=== PATIENT | male | born 1970 | race Caucasian/White ===

== ENCOUNTER 2020-06-13 16:44 | Emergency (ER) | payer MEDICAID, SELFPAY ==
[2020-06-13 16:46] VITALS: BP 124/69; PULSE 105; RESP 24; TEMP 36.2; O2SAT 99; BMI 17.6
--- NOTE | 2020-06-13 17:10 | EKG12_ITS ---
Test Reason : Blood Pressure : / mmHG Vent. Rate : 084 BPM Atrial Rate : 084 BPM P-R Int : 154 ms QRS Dur : 084 ms QT Int : 362 ms P-R-T Axes : 073 017 065 degrees QTc Int : 427 ms Normal sinus rhythm Normal ECG Confirmed by TRISTAN STARKEY, ITZ ([id number]), editor in chief newspaper PRINCE GALAN ([id number]) on 06/18/2020 9:29:50 AM Referred By: Confirmed By:DERICK HUDSON MD
[2020-06-13 17:20] LABS: Bedside Glucose > 500 mg/dL (70-110)
[2020-06-13 17:21] LABS: Absolute Neutrophil Count 2.8 X10^3/uL (2.0-7.7); Basophil# 0.02 X10^3/uL; Basophil% 0.4 % (0-1); Eosinophil# 0.04 X10^3/uL; Eosinophils% 0.9 % (0-5); Hematocrit 32.2 % (40-54); Lymphocyte % 30.6 % (19-41); Mean Corp Hgb Conc 31.1 g/dL (32-36); Mean Corpuscular Hgb 25.6 pg (27.0-32.0); Mean Corpuscular Volume 82.6 fL (80-94); Mean Platelet Vol. 9.8 fl (6.2-12.0); Monocyte% 6.6 % (0-10); NRBC Flagged by Analyzer 0 % (0-5); Neutrophil # 2.81 X10^3/uL (2.7-7.7); Neutrophil % 61.3 % (47-70); Platelet Count 234 K/mm3 (150-450); RBC Distribution Width CV 14.5 % (11.6-14.6); RBC Distribution Width SD 43.4 fl (35.1-43.9); White Blood Count 4.6 K/mm3 (4.4-11.0)
[2020-06-13 17:41] LABS: Blood Gas Specimen Type VEN; VBG BASE EXCESS -2 mmol/L (-1.0-3.5); VBG Bicarbonate 23 mmol/L (22-26); VBG Oxygen Content 24 mmol/L (23-33); VBG PO2 60 mmHg (25-40); VBG SO2 91 % (50-70); VBG pCO2 35.5 mmHg (41-51); VBG pH 7.42 (7.32-7.42)
[2020-06-13 17:45] LABS: Bacteria 0 SEEN /hpf (None Seen); Mucous, Urine 0 SEEN /hpf (<or=2+); Red Blood Cells-Urine 0 SEEN /hpf (0-5); Squamous Epithelial Cells - UA 0 SEEN /hpf (0-5); White Blood Cells 0 SEEN /hpf (0-5)
[2020-06-13 17:46] LABS: Color, Urine Yellow (Yellow); Glucose, Dipstick 1000 mg/dl (Normal); Ketone-Dipstick Negative (Negative); Leukocyte Esterase-Dipstick Negative /ul (Negative); Nitrite-Dipstick Negative (Negative); Occult Blood-Urine Negative /ul (Negative); Protein-Dipstick Negative (Negative); Urine Bilirubin Dipstick Negative (Negative); Urine Clarity Clear (Clear); Urine Urobilinogen Normal (Normal)
[2020-06-13] MEDS: 0.9% Normal Saline 1,000 ML 999 ML IV (17:51)
--- NOTE | 2020-06-13 17:52 | ED.VIS.GEN ---
History of Present Illness Chief Complaint: Confusion Detail of Chief Complaint: Symptoms of hyperglycemia, blood sugar greater than 875 Informant: Patient Onset: Days Context: Sudden Onset Timing: Continuous Quality: Hyperglycemia Location: Not applicable Current Severity: Severe Maximum Severity: Severe Worsened by: Malfunctioning insulin pump Relieved by: Administer up insulin boluses Associated Symptoms: Binocular blurred vision, nausea with vomiting, polyuria, nocturia, polydip Narrative: Patient is a 49-year-old male with type 1 diabetes. He states insulin pump was placed 7 months ago. He states since the insulin pump was placed he has had 2 episodes of DKA. He had trouble functioning at work. He is complaining of binocular blurred vision, polyuria, polydipsia and nocturia. He states his blood sugar at 1345 was greater than 875. He complains of abdominal pain. He denies infectious symptoms. He denies head trauma. He denies trouble with speech or swallowing. He denies cardiac or respiratory symptoms. Prior similar symptoms: Yes - admitted at outside facility within the past week Recent Illness/Hospitalization: Yes Capacity - Capacity Assessment Tool Can the patient make a choice & communicate that choice?: Yes Can the patient understand benefits, risks and alternatives?: Yes Can the patient make a logical, rational choice?: Yes Is the choice the patient makes consistent w/ their values?: Yes Is there an impending, emergent risk to the patient?: Unable to Determine Does the patient have an Advance Directive?: No Is there a Surrogate Available?: No i.e. HCPOA: No i.e. close relative (spouse, child, parent, sibling)?: No - Past Medical History (1) Diabetes mellitus Status: Chronic (2) Tobacco abuse Status: Chronic Past Medical History - Allergies and Home Meds Allergies/Adverse Reactions: Allergies No Known Allergies Allergy (Verified 06/10/15 22:44) Primary Care Physician: Shyam Poole MD [Primary Care Provider] - Surgical History: no surgical history Lives: Alone Smoking Status: Current every day smoker Alcohol: None Drugs: None Review of Systems General: Reports: Malaise. Denies: Chills, Fever, Subjective, Sweats Eyes: Reports: Visual changes - bilaterally, Blurred Vision - bilaterally. Denies: Diplopia ENT: Denies: Bilateral ear pain, Rhinorrhea, Sore throat Cardiovascular: Denies: Chest pain, Palpitations Respiratory: Denies: Dyspnea, Cough, Dyspnea on exertion, Orthopnea Gastrointestinal: Reports: Abdominal pain, Nausea, Vomiting. Denies: Diarrhea, Melena, Hematochezia Genitourinary: Reports: Frequency. Denies: Dysuria, Hematuria Musculoskeletal: Denies: Myalgias, Arthralgias, Neck pain, Back pain, Swelling, Extremity Pain, -, - Skin: Denies: Rash, Wounds Neurological: Denies: Headache, Weakness, Numbness Endocrine: Reports: Polyuria, Polydipsia Hematologic: Denies: Easy bruising, Easy bleeding Allergy: Denies: Uticaria Physical Exam Vital Signs/Narrative: Vital Signs Temp Pulse Resp BP Pulse Ox 06/13/20 16:46 97.2 F L 105 H 24 H 124/69 H 99 Inital Vital Signs reviewed: Yes General: Well nourished, Well developed, - - Patient appears uncomfortable Head: Normocephalic, Atraumatic Eyes: Perrl, EOMI. Negative for: Pale conjunctiva, Scleral icterus ENT: Dry mucous membranes. Negative for: Moist mucous membranes, No rhinorrhea, TM's clear, Nasal congestion, Sinus tenderness, - Neck: Supple, Nontender Cardiovascular: Regular rhythm, No murmurs, Normal S1, Normal S2, Tachycardia Respiratory: No distress, CTA bilaterally, Chest nontender Abdomen: Soft, Nondistended, No masses, Tender, Guarding, Hyperactive bowel sounds Rectal: Deferred Back: Nontender, Normal Inspection Extremities: Nontender, No edema. Negative for: Calf Tenderness Skin: Normal color, No rash, No Trauma. Negative for: Cyanosis, Diaphoresis, Jaundice Neurological: Alert, Oriented x3, Cranial nerves II-XII grossly intact, Normal Strength, Normal Sensation Psychological: Normal affect, Normal Mood Diagnostic/Tx/Re-eval Laboratory Results 06/13/20 06/13/20 06/13/20 16:55 17:04 17:04 WBC 4.6 RBC 3.90 L Hgb 10.0 L Hct 32.2 L MCV 82.6 MCH 25.6 L MCHC 31.1 L RDW Std Deviation 43.4 RDW Coeff of [place] 14.5 Plt Count 234 MPV 9.8 Immature Gran % (Auto) 0.200 Neut % (Auto) 61.3 Lymph % (Auto) 30.6 [place] % (Auto) 6.6 Eos % (Auto) 0.9 Baso % (Auto) 0.4 Absolute Neuts (auto) 2.8 Absolute Lymphs (auto) 1.40 Nucleated RBC % 0 Specimen Type VBG pH VBG pO2 VBG HCO3 VBG O2 Sat (Calc) VBG O2 Content VBG Base Excess POC Mix VBG pCO2 Pt Tmp Sodium 131 L Potassium 4.6 Chloride 99 Carbon Dioxide 25.0 Anion Gap 7 BUN 22 H Creatinine 1.02 Estim Creat Clear Calc 71.66 Est GFR (MDRD) Af Amer 100 Est GFR (MDRD) Non-Af 83 BUN/Creatinine Ratio 21.6 H Glucose 680 H* Calcium 8.0 L Magnesium 1.8 Urine Color Yellow Urine Clarity Clear Urine pH 6.0 Ur Specific [place] 1.010 Urine Protein Negative Urine Glucose (UA) 1000 H Urine Ketones Negative Urine Occult Blood Negative Urine Nitrite Negative Urine Bilirubin Negative Urine Urobilinogen Normal Ur Leukocyte Esterase Negative Urine RBC 0 SEEN Urine WBC 0 SEEN Ur Squamous Epith Cells 0 SEEN Urine Bacteria 0 SEEN Urine Mucus 0 SEEN POC Glucose 06/13/20 06/13/20 06/13/20 17:15 17:36 18:32 WBC RBC Hgb Hct MCV MCH MCHC RDW Std Deviation RDW Coeff of [place] Plt Count MPV Immature Gran % (Auto) Neut % (Auto) Lymph % (Auto) [place] % (Auto) Eos % (Auto) Baso % (Auto) Absolute Neuts (auto) Absolute Lymphs (auto) Nucleated RBC % Specimen Type [place] VBG pH 7.42 VBG pO2 60 H VBG HCO3 23 VBG O2 Sat (Calc) 91 H VBG O2 Content 24 VBG Base Excess -2 L POC Mix VBG pCO2 Pt Tmp 35.5 L Sodium Potassium Chloride Carbon Dioxide Anion Gap BUN Creatinine Estim Creat Clear Calc Est GFR (MDRD) Af Amer Est GFR (MDRD) Non-Af BUN/Creatinine Ratio Glucose Calcium Magnesium Urine Color Urine Clarity Urine pH Ur Specific [place] Urine Protein Urine Glucose (UA) Urine Ketones Urine Occult Blood Urine Nitrite Urine Bilirubin Urine Urobilinogen Ur Leukocyte Esterase Urine RBC Urine WBC Ur Squamous Epith Cells Urine Bacteria Urine Mucus POC Glucose > 500 H* > 500 H* It has hyperglycemia nonketotic state. Patient wishes to sign out AGAINST MEDICAL ADVICE. He states he feels better after 2 L of normal saline. Blood sugar has now decreased to 543. Patient will sign out AGAINST MEDICAL ADVICE he understands risk benefits. He was informed that he may not be able to perform 1 or more activities daily living, delaying treatment may result in more invasive treatment. He understands this may lead to semi-vegetative vegetative state, seizure disorder, injury to heart. He also was informed that this may result in mental, emotional or physical disability. In my medical opinion patient does have the capacity to refuse further care. - EKG Initial EKG Interpretation: Sinus Rhythm - Sinus rhythm with a ventricular rate 84. EKG is normal. NH interval is 154 ms. QRS duration 84 ms. QT duration 362 ms and the axis is normal. - Medical Decision Making Blood sugar greater than 800 and tachypnea with tachycardia concern patient has DKA versus hyperosmolar nonketotic state. He received 2 L of normal saline. Appropriate labs were ordered including EKG. Since the cause is known i.e. malfunctioning insulin pump chest x-ray was not obtained. The DKA order set was initiated. Patient was informed he will require admission of the hospital. ED Disposition - Plan for ED Patient: Disposition: Against Medical Advice Diagnosis: Hyperglycemic hyperosmolar nonketotic coma Instructions: ED Diabetes Overview Referrals: Shyam Poole MD [Primary Care Provider] - As soon as possible
[2020-06-13 18:06] LABS: Anion Gap 7 (5-15); BUN 22 mg/dL (7-18); BUN/Creat Ratio 21.6 RATIO (10-20); Chloride 99 mmol/L (98-107); Creatinine, Serum 1.02 mg/dL (0.70-1.30); EST Glomerular Filtration Rate 83 mL/min (>60); Est Glom Filt Rate - Afr Amer 100 mL/min (>60); Estimated Creatinine Clearance 71.66 ml/min; Glucose 680 mg/dL (74-106); Magnesium 1.8 mg/dL (1.6-2.6); Potassium 4.6 mmol/L (3.5-5.1); Sodium Level 131 mmol/L (136-145)
[2020-06-13 18:09] VITALS: BP 132/81; PULSE 81; RESP 15; O2SAT 100
[2020-06-13 18:35] LABS: Bedside Glucose > 500 mg/dL (70-110)
== END 2020-06-13 19:19 | disposition left against medical advice (07) ==
PROVIDERS: Emergency Provider Emergency Medicine
DX: E10.65 Type 1 diabetes mellitus with hyperglycemia (principal); Z79.4 Long term (current) use of insulin; Z96.41 Presence of insulin pump (external) (internal); Z53.21 Procedure and treatment not carried out due to patient leaving prior to being seen by health care provider; F17.200 Nicotine dependence, unspecified, uncomplicated
CPT/HCPCS: 80048; 81001; 82803; 82962; 83735; 85025; 93005; 96360; 99284; J7030; A4216